=== PATIENT | female | born 1960 | race Caucasian/White ===

== ENCOUNTER → 2016-11-25 | Outpatient (CLI) | payer OTHER ==
[~2016-11-25] MED LIST: ALPR.25T; CHOLESTEROL MED
--- NOTE | 2016-11-25 10:32 | Diagnostic Imaging Report ---
Two views of the right shoulder. INDICATION: Right arm pain. FINDINGS: There is no fracture seen. The alignment of the AC and glenohumeral joints appear satisfactory although the location of the glenohumeral joint and the AP dimension cannot be assessed without an axillary or Y scapula view. There is mild subchondral sclerosis at the AC joint and minimal inferior spurring at the glenoid seen. IMPRESSION: Mild degenerative changes. Dictated by: Dictated on workstation # [id number]
== END ==
LOC: RAD 10:01
PROVIDERS: ATTEND Nurse Practitioner Family
DX: M79.601 Pain in right arm (principal)
CPT/HCPCS: 73030

== ENCOUNTER → 2019-04-19 | Outpatient (CLI) | payer OTHER ==
--- NOTE | 2019-04-20 10:17 | Diagnostic Imaging Report ---
INDICATION: Routine screening. Comparison is made with prior mammogram from 01/12/2010. 2-D and 3-D bilateral screening mammography was performed with a Computer Aided Detection (CAD) system. 3-D tomosynthesis was also performed and reviewed. FINDINGS: Scattered fibroglandular densities are identified bilaterally. A nodular density is identified in the upper outer left breast, not as well seen on prior exam but likely an intraparenchymal lymph node. Additional views are recommended. No other masses are seen. There are benign calcifications. No malignant appearing microcalcifications are seen. Axillae are unremarkable. IMPRESSION: Left breast nodular density. Additional views are recommended for further evaluation. ACR BI-RADS Category 0: Incomplete. (Needs additional imaging evaluation). Result letter will be mailed to the patient. Note: At least 10% of breast cancer is not imaged by mammography. Dictated by: Dictated on workstation # [id number]
== END ==
LOC: RAD 15:36
PROVIDERS: ATTEND Family Medicine
DX: Z12.31 Encounter for screening mammogram for malignant neoplasm of breast (principal); R92.8 Other abnormal and inconclusive findings on diagnostic imaging of breast
CPT/HCPCS: 77067

== ENCOUNTER 2020-08-26 10:05 | Day surgery (SDC) | payer OTHER ==
[~2020-08-26] VITALS: Ht 155 cm; Wt 82.0 kg
[~2020-08-26 10:05] MED LIST changes: +LACTATED RINGERS 1,000 ML IV ONE; +NAPR-1070 PO; +SIMV20TA26 PO
[2020-08-26] MEDS ORDERED: LACTATED RINGERS 1,000 ML IV STA (10:07)
[2020-08-26 10:20] VITALS: BP 153/78
--- NOTE | 2020-08-26 11:01 | Progress Note-Pre Operative ---
Pre-Operative Progress Note H&P Reviewed The H&P was reviewed, patient examined and no changes noted. Date Seen by Provider: August 26, 2020 Time Seen by Provider: 11: Date H&P Reviewed: August 26, 2020 Time H&P Reviewed: 11:01 Pre-Operative Diagnosis: family history colon cancer SACHA VAUGHAN DO August 26, 2020 11:01
[2020-08-26] MEDS ORDERED: PROPOFOL INJECTION 50 ML IV ONE (11:35)
[2020-08-26] MEDS ORDERED: MIDAZOLAM 2 MG/2 ML (VERSED) VIAL ONE (11:36)
[2020-08-26 12:00] VITALS: BP 106/63
--- NOTE | 2020-08-26 12:01 | Progress Note-Post Operative ---
Post-Operative Progess Note Surgeon (s)/Mine Exploration Engineer (s) Surgeon SACHA VAUGHAN DO Mine Exploration Engineer: na Pre-Operative Diagnosis family history colon cancer Post-Operative Diagnosis normal colon Procedure & Operative Findings Date of Procedure 08/26/20 Procedure Performed/Findings colonoscopy Anesthesia Type per lockstitch waistline joiner Estimated Blood Loss Estimated blood loss (mL): none Specimens/Packing Specimens Removed na SACHA VAUGHAN DO August 26, 2020 12:01
--- NOTE | 2020-08-26 12:02 | Discharge Inst-Simple/Standard ---
Discharge Inst-Standard Patient Instructions/Follow Up Plan of Care/Instructions/FU: Litzy - 5 years, if any issues before that be seen at that time. Activity as Tolerated: Yes Discharge Diet: Regular Diet SACHA VAUGHAN DO August 26, 2020 12:02
[2020-08-26 12:05] VITALS: BP 99/54
[2020-08-26 12:10] VITALS: BP_SYST 138; BP_SYST 95; BP_DIAS 69; BP_DIAS 90
[2020-08-26 12:40] VITALS: BP 138/90
[2020-08-26 12:45] VITALS: BP 138/90
--- NOTE | 2020-08-26 13:33 | Anesthesia-General Post-Op ---
MAC Patient Condition Mental Status/LOC: Same as Preop Cardiovascular: Satisfactory Nausea/Vomiting: Absent Respiratory: Satisfactory Pain: Controlled Complications: Absent Post Op Complications Complications None Follow Up Care/Instructions Patient Instructions None needed. Anesthesiology Discharge Order Discharge Order Patient is doing well, no complaints, stable vital signs, no apparent adverse anesthesia problems. No complications reported per nursing. BAYRON ALCAZAR CRNA August 26, 2020 13:33
--- NOTE | 2020-08-26 19:12 | OPERATIVE REPORT ---
DATE OF SERVICE: 08/26/2020 PREOPERATIVE DIAGNOSIS: Family history of colon cancer. POSTOPERATIVE DIAGNOSIS: Normal colon. PROCEDURE PERFORMED: Colonoscopy. SURGEON: Sacha Mcghee DO. ANESTHESIA: Per CAR RENTAL SALES ASSISTANT. ESTIMATED BLOOD LOSS: None. COMPLICATIONS: None. INDICATIONS FOR PROCEDURE: The patient is a 60-year-old female needing screening colonoscopy. She understands risks and benefits of the procedure and wished to proceed with procedure. Consent was signed in the chart. DESCRIPTION OF PROCEDURE: The patient was taken to the endoscopy suite and placed in the left lateral recumbent position. Timeout was performed. Digital rectal exam was performed. No palpable polyps, masses or ulcerations. Scope was inserted in the rectum and advanced all the way to the cecum with minimal difficulty. Prep was adequate. Scope was then slowly retracted back. No polyps, masses or ulcerations within the cecum, ascending, transverse, descending and sigmoid colon. Once in the rectum, scope was inserted and retracted multiple times, noting no other pathology. Scope was then slowly retracted back until completely removed. The patient tolerated the procedure well without any complications. She was taken to the recovery room in a stable condition. RECOMMENDATIONS: The patient will need repeat colonoscopy in five years. Any issues before that be seen at that time. Job ID: [id number] DocumentID: [id number] Dictated Date: 08/26/2020 12:10:03 Legal Stenographer Date: 08/26/2020 19:11:30 Dictated By: SACHA MCGHEE DO
== END 2020-08-26 12:45 | disposition home or self-care (01) ==
LOC: ENDO 10:05
PROVIDERS: ATTEND Surgery
DX: Z12.11 Encounter for screening for malignant neoplasm of colon (principal); R73.03 Prediabetes; I25.2 Old myocardial infarction; I51.9 Heart disease, unspecified; F17.210 Nicotine dependence, cigarettes, uncomplicated; E78.5 Hyperlipidemia, unspecified; Z88.5 Allergy status to narcotic agent; Z90.49 Acquired absence of other specified parts of digestive tract; Z90.710 Acquired absence of both cervix and uterus; Z79.899 Other long term (current) drug therapy; Z80.0 Family history of malignant neoplasm of digestive organs; Z83.3 Family history of diabetes mellitus; Z83.6 Family history of other diseases of the respiratory system; Z82.49 Family history of ischemic heart disease and other diseases of the circulatory system